=== PATIENT | female | born 1970 | race African-American/Black ===

== ENCOUNTER 2017-12-21 13:47 | Observation (INO) ==
[2017-12-21] MEDS ORDERED: Iohexol 350 MG/ML 100 ML Vial (for Cath Lab) IVCONTRAST ONE (13:48)
--- NOTE | 2017-12-21 14:31 | ED ---
HPI General Chief complaint: Chest Pain Stated complaint: Chest Pain Time Seen by Provider: 12/21/17 14:01 History of Present Illness HPI narrative: 47 female history of hypertension here for evaluation of chest pain. Chest pain started this afternoon, mid chest, radiates to the left arm, pressure-like, dull, occurred at rest, no palpitation or sweating, lasted for 3 minutes and went away on its own, patient received aspirin and nitroglycerin en route, she currently has no chest pain but is anxious about her condition. Does not take any medications for hypertension says that she was diagnosed only 3 months ago extensive family history of CAD. Related Data Home Medications Medication Instructions Recorded Confirmed No Known Home Medications 12/21/17 12/21/17 Allergies Allergy/AdvReac Type Severity Reaction Status Date / Time No Known Allergies Allergy Verified 12/21/17 14:21 Review of Systems ROS: all other systems reviewed are negative [facility] Medical History Medical History Chest pain (Acute) Hypertension (Acute) Family History Family History Other Family history of acute myocardial infarction Social History Social History Substance History: No History of Abuse Second Hand Smoke Exposure: No Smoking Status: Never smoker How Often Do You Have a Drink Containing Alcohol: Never Recent Travel in [facility] within the Last 8 Weeks: No Recent Out of Country Travel within the Last 8 Weeks: No Immunization History Tetanus Immunization: <5 Years Exam Narrative Exam Narrative: GENERAL: Alert oriented x3 no acute distress. SKIN: Focused skin assessment warm/dry. HEAD: Atraumatic. Normocephalic. EYES: Pupils equal and round. No scleral icterus. No injection or drainage. ENT: No nasal bleeding or discharge. Mucous membranes pink and moist. NECK: Trachea midline. No JVD. CARDIOVASCULAR: Regular rate and rhythm. No murmur appreciated. RESPIRATORY: No accessory muscle use. Clear to auscultation. Breath sounds equal bilaterally. GASTROINTESTINAL: Abdomen soft, non-tender, nondistended. Hepatic and splenic margins not palpable. MUSCULOSKELETAL: No obvious deformities. No clubbing. No cyanosis. No edema. NEUROLOGICAL: Awake and alert. No obvious cranial nerve deficits. Motor grossly within normal limits. Normal speech. PSYCHIATRIC: Appropriate mood and affect; insight and judgment normal. Course Initial Documented Vital Signs Temperature 98.5 F 12/21/17 13:59 Pulse Rate 79 12/21/17 13:59 Respiratory Rate 17 12/21/17 13:59 Blood Pressure 189/94 H 12/21/17 13:59 Pulse Oximetry 100 12/21/17 13:59 Last Documented Vital Signs Temperature 97.7 F 12/22/17 08:00 Pulse Rate 75 12/22/17 08:00 Respiratory Rate 16 12/22/17 04:30 Blood Pressure 127/71 12/22/17 08:00 Pulse Oximetry 99 12/22/17 04:30 Medical Decision Making MDM Narrative Medical decision making narrative: 47 female history of hypertension, non-smoker , here for chest pain, chest pain is typical on presentation and concern for CAD. EKG in route by EVAC showed ST segment elevation on V1, repeat EKG here shows ST segment elevation on V1 with no reciprocal changes, she also has multiple T wave inversions, she is currently pain-free, I sent a picture of the EKG to Dr. ortega cardiology javascript front end developer who recommended emergency cath. Patient will be evaluated per cardiology here in the ER. Pending labs. Update: Dr. Ortega assessed the patient at the ER and cath team will sisal picker patient for cardiac cath. Medical Screen Exam Complete: Yes Emergency Medical Condition: Yes Lab Data Result diagrams: 12/22/17 05:37 12/22/17 05:37 Lab Results 12/21/17 12/21/17 12/21/17 Range/Units 14:10 14:10 14:10 WBC 5.6 (4.0-11.0) th/mm3 RBC 4.44 (4.00-5.30) mil/mm3 Hgb 14.0 (11.6-15.3) gm/dL Hct 38.4 (35.0-46.0) % MCV 86.5 (80.0-100.0) fL MCH 31.5 (27.0-34.0) pg MCHC 36.4 H (32.0-36.0) % RDW 12.5 (11.6-17.2) % Plt Count 288 (150-450) th/mm3 MPV 8.9 (7.0-11.0) fL Prelim Diff (Auto) Slide review pending Neut % (Auto) 54.9 (16.0-70.0) % Lymph % (Auto) 36.9 (9.0-44.0) % [place] % (Auto) 5.3 (0.0-8.0) % Eos % (Auto) 2.2 (0.0-4.0) % Baso % (Auto) 0.7 (0.0-2.0) % Neut # (Auto) 3.0 (1.8-7.7) th/mm3 Lymph # (Auto) 2.1 (1.0-4.8) th/mm3 [place] # (Auto) 0.3 (0.0-0.9) th/mm3 Eos # (Auto) 0.1 (0.0-0.4) th/mm3 Baso # (Auto) 0.0 (0.0-0.2) th/mm3 WBC Differential . Diff Scan Auto diff confirmed Differential Comment . PT 10.1 (9.8-11.6) sec INR 1.0 Ratio APTT 25.0 (24.3-30.1) sec D-Dimer Quant (PE/DVT) 0.27 (0.00-0.50) mg/L FEU Sodium 142 (136-145) meq/L Potassium 3.7 (3.5-5.1) meq/L Chloride 109 H (98-107) meq/L Carbon Dioxide 28.5 (21.0-32.0) meq/L Anion Gap 5 (5-15) meq/L BUN 15 (7-18) mg/dL Creatinine 1.03 H (0.50-1.00) mg/dL Estimated GFR 69 L (>89) mL/min Random Glucose 109 H (74-106) mg/dL Hemoglobin A1c (4.3-6.0) % Calcium 8.8 (8.5-10.1) mg/dL Magnesium 2.2 (1.5-2.5) mg/dL Total Bilirubin 0.7 (0.2-1.0) mg/dL AST 22 (15-37) U/L ALT 25 (10-53) U/L Alkaline Phosphatase 85 (45-117) U/L Total Creatine Kinase 243 H (26-192) U/L CK-MB (CK-2) 1.6 (0.5-3.6) ng/mL CK-MB (CK-2) % 0.7 (0.0-4.0) % Troponin I Less than 0.02 L (0.02-0.05) ng/mL B-Natriuretic Peptide (0-100) pg/mL Total Protein 7.8 (6.4-8.2) g/dL Albumin 3.8 (3.4-5.0) g/dL Triglycerides (42-150) mg/dL Cholesterol (120-200) mg/dL LDL Cholesterol, Calc (0-99) mg/dL HDL Cholesterol (40.0-60.0) mg/dL Cholesterol/HDL Ratio Ratio Lipase 95 (73-393) U/L TSH (0.358-3.740) uIU/mL 12/21/17 12/21/17 12/21/17 Range/Units 14:10 14:10 14:10 WBC (4.0-11.0) th/mm3 RBC (4.00-5.30) mil/mm3 Hgb (11.6-15.3) gm/dL Hct (35.0-46.0) % MCV (80.0-100.0) fL MCH (27.0-34.0) pg MCHC (32.0-36.0) % RDW (11.6-17.2) % Plt Count (150-450) th/mm3 MPV (7.0-11.0) fL Prelim Diff (Auto) Neut % (Auto) (16.0-70.0) % Lymph % (Auto) (9.0-44.0) % [place] % (Auto) (0.0-8.0) % Eos % (Auto) (0.0-4.0) % Baso % (Auto) (0.0-2.0) % Neut # (Auto) (1.8-7.7) th/mm3 Lymph # (Auto) (1.0-4.8) th/mm3 [place] # (Auto) (0.0-0.9) th/mm3 Eos # (Auto) (0.0-0.4) th/mm3 Baso # (Auto) (0.0-0.2) th/mm3 WBC Differential Diff Scan Differential Comment PT (9.8-11.6) sec INR Ratio APTT (24.3-30.1) sec D-Dimer Quant (PE/DVT) (0.00-0.50) mg/L FEU Sodium (136-145) meq/L Potassium (3.5-5.1) meq/L Chloride (98-107) meq/L Carbon Dioxide (21.0-32.0) meq/L Anion Gap (5-15) meq/L BUN (7-18) mg/dL Creatinine (0.50-1.00) mg/dL Estimated GFR (>89) mL/min Random Glucose (74-106) mg/dL Hemoglobin A1c 6.0 (4.3-6.0) % Calcium (8.5-10.1) mg/dL Magnesium (1.5-2.5) mg/dL Total Bilirubin (0.2-1.0) mg/dL AST (15-37) U/L ALT (10-53) U/L Alkaline Phosphatase (45-117) U/L Total Creatine Kinase (26-192) U/L CK-MB (CK-2) (0.5-3.6) ng/mL CK-MB (CK-2) % (0.0-4.0) % Troponin I (0.02-0.05) ng/mL B-Natriuretic Peptide 14 (0-100) pg/mL Total Protein (6.4-8.2) g/dL Albumin (3.4-5.0) g/dL Triglycerides 179 H (42-150) mg/dL Cholesterol 168 (120-200) mg/dL LDL Cholesterol, Calc 83 (0-99) mg/dL HDL Cholesterol 49.2 (40.0-60.0) mg/dL Cholesterol/HDL Ratio 3.41 Ratio Lipase (73-393) U/L TSH 1.610 (0.358-3.740) uIU/mL 12/22/17 12/22/17 Range/Units 05:37 05:37 WBC 6.9 (4.0-11.0) th/mm3 RBC 4.30 (4.00-5.30) mil/mm3 Hgb 13.0 (11.6-15.3) gm/dL Hct 37.4 (35.0-46.0) % MCV 87.1 (80.0-100.0) fL MCH 30.2 (27.0-34.0) pg MCHC 34.7 (32.0-36.0) % RDW 12.6 (11.6-17.2) % Plt Count 258 (150-450) th/mm3 MPV 8.7 (7.0-11.0) fL Prelim Diff (Auto) Neut % (Auto) 75.2 H (16.0-70.0) % Lymph % (Auto) 19.1 (9.0-44.0) % [place] % (Auto) 4.0 (0.0-8.0) % Eos % (Auto) 1.4 (0.0-4.0) % Baso % (Auto) 0.3 (0.0-2.0) % Neut # (Auto) 5.2 (1.8-7.7) th/mm3 Lymph # (Auto) 1.3 (1.0-4.8) th/mm3 [place] # (Auto) 0.3 (0.0-0.9) th/mm3 Eos # (Auto) 0.1 (0.0-0.4) th/mm3 Baso # (Auto) 0.0 (0.0-0.2) th/mm3 WBC Differential . Diff Scan Differential Comment Auto diff final PT (9.8-11.6) sec INR Ratio APTT (24.3-30.1) sec D-Dimer Quant (PE/DVT) (0.00-0.50) mg/L FEU Sodium 142 (136-145) meq/L Potassium 3.6 (3.5-5.1) meq/L Chloride 108 H (98-107) meq/L Carbon Dioxide 28.1 (21.0-32.0) meq/L Anion Gap 6 (5-15) meq/L BUN 15 (7-18) mg/dL Creatinine 1.03 H (0.50-1.00) mg/dL Estimated GFR 69 L (>89) mL/min Random Glucose 131 H (74-106) mg/dL Hemoglobin A1c (4.3-6.0) % Calcium 8.6 (8.5-10.1) mg/dL Magnesium (1.5-2.5) mg/dL Total Bilirubin 0.5 (0.2-1.0) mg/dL AST 11 L (15-37) U/L ALT 26 (10-53) U/L Alkaline Phosphatase 77 (45-117) U/L Total Creatine Kinase (26-192) U/L CK-MB (CK-2) (0.5-3.6) ng/mL CK-MB (CK-2) % (0.0-4.0) % Troponin I (0.02-0.05) ng/mL B-Natriuretic Peptide (0-100) pg/mL Total Protein 7.1 D (6.4-8.2) g/dL Albumin 3.3 L (3.4-5.0) g/dL Triglycerides (42-150) mg/dL Cholesterol (120-200) mg/dL LDL Cholesterol, Calc (0-99) mg/dL HDL Cholesterol (40.0-60.0) mg/dL Cholesterol/HDL Ratio Ratio Lipase (73-393) U/L TSH (0.358-3.740) uIU/mL Imaging Data Radiologist's impression: Chest X-Ray 12/21/17 14:24 CONCLUSION: Negative examination. Discharge Plan Discharge Disposition Patient Disposition: 30 Still Patient Discharge Condition Condition: Good Discharge Order Discharge Orders: Discharge Order (Routine); Ordered 12/22/17 Ordered By: Jered Carias Discharge Details Anticipated Discharge Date: 12/22/17 Discharge Comment: discharge after urine screen obtained. Physicians Team ED Provider: Dexter Mars Primary Care Provider: Primary Care Alma Encarnacion Attending Provider: Jered Carias Discharge Interventions Interventions: ED Discharge Assessment Last Done: 12/21/17 15:00 Vital Signs Last Done: 12/21/17 14:24 Status ED Status: Left Department Discharge Information Discharge Date/Time: 12/21/17 19:04
[2017-12-21 15:05] LABS: Baso % (Auto) 0.7 % (0.0-2.0); D-Dimer 0.27 mg/L FEU (0.00-0.50); Eos # (Auto) 0.1 th/mm3 (0.0-0.4); Eos % (Auto) 2.2 % (0.0-4.0); Hematocrit 38.4 % (35.0-46.0); Lymph # (Auto) 2.1 th/mm3 (1.0-4.8); Lymph % (Auto) 36.9 % (9.0-44.0); Mean Corpuscular Hemoglobin 31.5 pg (27.0-34.0); Mean Corpuscular Volume 86.5 fL (80.0-100.0); Mean Platelet Volume 8.9 fL (7.0-11.0); Mono # (Auto) 0.3 th/mm3 (0.0-0.9); Mono % (Auto) 5.3 % (0.0-8.0); Neut % (Auto) 54.9 % (16.0-70.0); Platelet Count 288 th/mm3 (150-450); Prothrombin Time 10.1 sec (9.8-11.6); Red Blood Count 4.44 mil/mm3 (4.00-5.30); Red Cell Distribution Width 12.5 % (11.6-17.2); White Blood Count 5.6 th/mm3 (4.0-11.0)
[2017-12-21 15:11] LABS: Mean Corpuscular HGB Conc 36.4 % (32.0-36.0)
[2017-12-21] MEDS ORDERED: Heparin/NS PF Inj 1,000 ML ONE (15:15)
[2017-12-21] MEDS ORDERED: fentaNYL Citrate Inj 100 MCG/2 ML Ampul ONE (15:15)
[2017-12-21 15:17] LABS: Alkaline Phosphatase 85 U/L (45-117); Creatine Kinase 243 U/L (26-192); Total Protein 7.8 g/dL (6.4-8.2)
[2017-12-21 15:22] LABS: Alanine Aminotransferase 25 U/L (10-53); Albumin 3.8 g/dL (3.4-5.0); Anion Gap 5 meq/L (5-15); Aspartate Aminotransferase 22 U/L (15-37); Blood Urea Nitrogen 15 mg/dL (7-18); Calcium 8.8 mg/dL (8.5-10.1); Carbon Dioxide 28.5 meq/L (21.0-32.0); Chloride 109 meq/L (98-107); Glomerular Filtration Rate 69 mL/min (>89); Glucose,Random 109 mg/dL (74-106); Lipase 95 U/L (73-393); Magnesium 2.2 mg/dL (1.5-2.5); Potassium 3.7 meq/L (3.5-5.1); Sodium 142 meq/L (136-145)
--- NOTE | 2017-12-21 15:26 | XR ---
EXAM DATE: 12/21/2017 2:24 PM EDT AGE/SEX: 47 years / Female INDICATIONS: Angina. CLINICAL DATA: This is the patient's initial encounter. Patient reports that signs and symptoms have been present for 1 day and indicates a pain score of 0/10. MEDICAL/SURGICAL HISTORY: None. None. COMPARISON: No prior exams available for comparison. FINDINGS: A single AP view of the chest demonstrates the lungs to be symmetrically aerated without evidence of mass, infiltrate or effusion. The cardiomediastinal contours are unremarkable. Osseous structures a re intact. CONCLUSION: Negative examination. Electronically signed by: Juan Ramon Hopper MD 12/21/2017 3:25 PM EDT
[2017-12-21 15:29] LABS: CKMB Percent 0.7 % (0.0-4.0); Creatine Kinase MB 1.6 ng/mL (0.5-3.6)
--- NOTE | 2017-12-21 15:58 | CATHPROC ---
[employer] HIS Report Study Information Study Number Admission Scheduled Start Study Start [id number] Dec 21 2017 1:47PM 12/21/2017 Dec 21 2017 3:03PM [facility] Cardiac Catheterization Admit Source Facility Department Emergency department [facility] - Radiologic Technology Program Director Physician and Clinical Staff Initial Maurice Rodríguez Cdl Team Truck Driver Chcuky Jensen,TAB Recorder Antonette Faria,RT(R) Scrub Heidy Lopez RCIS TECH2 Procedures Performed Procedure Location (Site) Vessel Name Angiogram LV LV Ventricle Coronary Angiograms LCA Left Coronary Coronary Angiograms RCA Right Coronary L Heart Cath Equipment Time Predictive Maintenance Specialist Description Size Mfg Part Number Used/Scraped TRANSDUCER, TRUWAVE [id number] 15:16 [employer] LANDAVERDE * Used W/STOCKCOCK *[id number] 15:50 Rent Here VASCADE, FR5 CLOSURE SYSTEM FR 5 Used *[id number] *[id number] *[id number] 15:16 [employer] BLANKET,WARM AIR CCL * Used *[id number] 15:16 [employer] PACK, CCL CUSTOM * Used *[id number] 15:16 [employer] PACER PEN, SKIN DUAL W/ RULER * Used *[id number] PIG ANG 145 DXTERITY [id number] 15:37 [employer] TechnologiesTRONIC FR 5 Used CATHETER *[id number] 15:16 [employer] MEDICAL WIRE, 3MMJ .035 180CM 180CM Used *[id number] PROBE COVER, STERILE [id number] 15:16 Ren[employer]dai * Used ULTRASOUND W/ GEL *[id number] 15:16 NAMIC MANIFOLD, 4 PORT * Used *[id number] 15:39 NAMIC TUBING, HIGH PRESSURE 20" 20" Used *[id number] 15:16 NAMIC TUBING, HIGH PRESSURE 48" 48" Used *[id number] 15:16 [employer] OMNIPAQUE, 350 MG, 150ML 150ML [id number] Used 15:37 [employer] OMNIPAQUE, 350 MG, 50ML 50ML [id number] Used [id number] 15:16 TERUMO MEDICAL SHEATH, FR5 TERUMO (10CM) FR 5 Used *[id number] Equipment Model, Serial, Lot Number and Expiration Data Description Model Number Serial Number Lot Number Expiration Date PIG ANG 145 DXTERITY CATHETER [id number] 06-28-2019 History: Allergies Allergy Reaction No Known Allergies History: Risk Factors Family History of Hypertension Dyslipidemia Previous GA Previous Heart Failure Premature CAD Yes No No No No Prior Valve Prior PCI Prior CABG Surgery No No No Cerebrovascular Peripheral Artery Chronic Lung On Dialysis Diabetes Disease Disease Disease No No No No No History: Symptoms/Diagnosis Selection Items Chest pain History: Stress Tests Stress or Imaging Studies Performed No History: Other Current Smoker No Labs Hgb (g/dl) Hct (%) WBC (l/cumm) Platelets (thousands) 11.60-17.00 35.00-51.00 4.00-11.00 150.00-450.00 14.0 38.4 5.6 288 Glucose (mg/dl) BUN (mg/dl) Creatinine (mg/dl) BUN:Creatinine (1:x) 74.00-106.00 7.00-18.00 0.50-1.30 10.00-20.00 109 15 1.0 15 Na (meq/l) K (meq/l) 136.00-145.00 3.50-5.10 142 3.7 INR (PTT:PT) 0.90-1.10 1 Troponin I (ng/ml) CPK (u/l) CPK-MB (ng/ML) 0.02-0.05 26.00-308.00 0.50-3.60 0.02 243 1.6 Medication Medication Total Dose (Bolus/Oral) Medication Total Dosage/Unit 1% XYLOCAINE 20 mL FENTANYL 75 mcg VERSED 3 mg Medications (Bolus/Oral) Medication Time Given Dosage/Unit Administered By Reason VERSED 12/21/2017 3:18:09 PM 1 mg Chucky Jensen 1 mg VERSED given in lab by Chucky Jensen RN in Left Antecubital via Peripheral IV. Ordered by Maurice Temple. FENTANYL 12/21/2017 3:18:17 PM 25 mcg Chucky Jensen 25 mcg FENTANYL given in lab by Chucky Jensen RN in Left Antecubital via Peripheral IV. Ordered by Maurice Ortega. VERSED 12/21/2017 3:26:32 PM 1 mg Chucky Jensen 1 mg VERSED given in lab by Chucky Jensen RN in Left Antecubital via Peripheral IV. Ordered by Maurice Temple. FENTANYL 12/21/2017 3:26:35 PM 25 mcg Chucky Jensen 25 mcg FENTANYL given in lab by Chucky Jensen RN in Left Antecubital via Peripheral IV. Ordered by Maurice Ortega. VERSED 12/21/2017 3:31:51 PM 1 mg Chucky Jensen 1 mg VERSED given in lab by Chucky Jensen RN in Left Antecubital via Peripheral IV. Ordered by Maurice Temple. FENTANYL 12/21/2017 3:31:54 PM 25 mcg Chucky Jensen 25 mcg FENTANYL given in lab by Chucky Jensen RN in Left Antecubital via Peripheral IV. Ordered by Maurice Ortega. 1% XYLOCAINE 12/21/2017 3:34:10 PM 20 mL Maurice Ortega 20 mL 1% XYLOCAINE given in lab by Maurice Ortega in Right Groin via Subcutaneous. Medication (Drip) Medication Time Given Dosage/Unit Concentration/Unit Diluent (ml) Solutio n IV Solutions 12/21/2017 3:03:56 PM 50 mL (IV) NaCl .9 IV Solutions given in lab by Chucky Jensen RN in Left Antecubital via Peripheral IV. Pump/Drip Flow using NaCl .9. Initial Case Assessment Cardiovascular Chest Pain 0 Edema Present Skin color Skin None Normal Warm Dry Circulatory - Right Pulses Dorsalis Pedis Femoral 2 2 Scale (0,1,2,3,4,d) Circulatory - Left Pulses Dorsalis Pedis Femoral 2 2 Scale (0,1,2,3,4,d) Neurological State Oriented to time-place- Alert Moves all extremities person Chronological Log Time Study Chronological Log 15:00:31 Patient arrived via Bed. 15:03:35 Patient Name, D.O.B, / Armband Verified By R.N. 15:03:35 Consent signed by the physician and the patient and verified by the Radiologic Technology Program Director staff. 15:03:36 Pre-op and post- op instructions given; patient acknowledges understanding of instructions. 15:03:41 Presedation assessment performed by Radiologic Technology Program Director RN. 15:03:44 Patient has been NPO for Less than 6Hrs. 15:03:45 Skin Breakdown- none per pt 15:03:46 Patient Warmer Placed on the Table. 15:03:48 Jammie Prominences Protected 15:03:48 A # 20 IV was noted in the Antecubital (left). Grade = 0 15:03:56 IV Solutions given in lab by Chucky Jensen RN in Left Antecubital via Peripheral IV. Pump /Drip Flow using NaCl .9. 15:03:58 History and physical on the chart or being dictated. Assessment: Initial Case, Chest Pain=0, Edema=None, Color=Normal, Skin = Warm, Dry Right Pulses: Gabe Ped=2, Femoral=2 15:03:59 Left Pulses: Gabe Ped=2, Femoral=2 Neurological: State=Alert, Ox3, FAYE 15:11:12 Reference ECG taken Vitals capture started with the following parameters, Patient=Adult, Interval=5 min, Initial Pr wxduwo=689 mmHg, 15:12:20 Deflation Rate=5 mmHg, Cuff placed on Right Arm 15:13:41 HR=67 bpm, DCGR=465/106 mmhg, SpO2=99.0 %, Resp=11 B/min 15:18:03 HR=77 bpm, AKSW=965/109 mmhg, DrC1=758.0 %, Resp=9 B/min 15:18:09 1 mg VERSED given in lab by Chucky Jensen RN in Left Antecubital via Peripheral IV. Order ed by Maurice Ortega. 15:18:17 25 mcg FENTANYL given in lab by Chucky Jensen RN in Left Antecubital via Peripheral IV. O rdered by Maurice Ortega. 15:20:43 Bilateral groins prepped with 2% chlorhexidine, and draped after a 3 minute waiting time. 15:23:41 HR=73 bpm, CKZY=401/100 mmhg, SpO2=97.0 %, Resp=10 B/min 15:25:33 Reference ECG taken 15:25:40 Pressure channel 1 zeroed. 15:26:32 1 mg VERSED given in lab by Chucky Jensen RN in Left Antecubital via Peripheral IV. Order ed by Maurice Ortega. 15:26:35 25 mcg FENTANYL given in lab by Chucky Jensen RN in Left Antecubital via Peripheral IV. O rdered by Maurice Ortega. 15:27:51 paged 15:28:05 HR=71 bpm, ZRWK=317/90 mmhg, SpO2=96 %, Resp=9 B/min 15:28:08 MD arrived. 15:31:51 1 mg VERSED given in lab by Chucky Jensen RN in Left Antecubital via Peripheral IV. Order ed by Maurice Ortega. 15:31:54 25 mcg FENTANYL given in lab by Chucky Jensen RN in Left Antecubital via Peripheral IV. O rdered by Maurice Ortega. 15:32:58 HR=81 bpm, SJVA=290/93 mmhg, SpO2=95.0 %, Resp=9 B/min Time Out. Correct patient, correct procedure, correct physician, labs, allergies, and equipment verified with ammunition assembly i laborer 15:33:48 team present. Fire risk assesment completed (see hard stop sheet for coding). Time Out Conc urred by and individual staff in procedure. 15:34:00 Case Start 15:34:10 20 mL 1% XYLOCAINE given in lab by Maurice Ortega in Right Groin via Subcutaneous. 15:36:18 Access site was Right Femoral Artery via ultrasound. 15:36:28 A SHEATH, FR5 TERUMO (10CM) FR 5 was advanced into the Fem Art (right) using the Percutaneo us technique. A PIG ANG 145 DXTERITY CATHETER FR 5 was advanced over a wire. OMNIPAQUE, 350 MG, 150ML 150ML w as used 15:37:01 for injections. 15:38:01 HR=83 bpm, UKUE=538/74 mmhg, SpO2=95.0 %, Resp=9 B/min Recorded Pressure: LV, HR=80, Condition=Condition 1 15:38:13 (Left Ventricle) LV 145/7/12 15:39:58 The LV was injected at 10 cc/sec for a total of 30. OMNIPAQUE, 350 MG, 50ML 50ML used. Recorded Pressure: LV, Ao, HR=83, Condition=Condition 1 15:41:23 (Left Ventricle) LV 153/8/17, (Aorta) Ao 156/80/112 15:41:58 Catheter was removed A JL 4.0 INFINITI CATHETER FR 5 was advanced over a wire. OMNIPAQUE, 350 MG, 150ML 150ML was us ed for 15:42:29 injections. Recorded Pressure: Ao, HR=82, Condition=Condition 1 15:42:56 (Aorta) Ao 160/88/119 15:43:00 HR=81 bpm, QJJH=770/84 mmhg, SpO2=97.0 %, Resp=12 B/min 15:43:12 The LCA was injected and visualized at various angles. OMNIPAQUE, 350 MG, 150ML 150ML used . 15:45:08 Catheter was removed A AR MOD INFINITI CATHETER FR 5 was advanced over a wire. OMNIPAQUE, 350 MG, 150ML 150ML was us ed for 15:45:14 injections. 15:46:18 The RCA was injected and visualized at various angles. OMNIPAQUE, 350 MG, 150ML 150ML used . 15:47:39 Catheter was removed 15:47:43 Case End (Physician broke scrub) 15:47:55 HR=90 bpm, TNIN=152/87 mmhg, SpO2=98.0 %, Resp=11 B/min 15:49:30 An injection in the Fem Art (right) was made through the SHEATH, FR5 TERUMO (10CM) FR 5. 15:52:58 HR=84 bpm, HQSI=049/88 mmhg, SpO2=98.0 %, Resp=11 B/min 15:55:29 VASCADE, FR5 CLOSURE SYSTEM FR 5 placement in the Fem Art (right) 15:55:35 Sterile dressing applied to site 15:55:37 No case complications noted. 15:55:38 Cine recording checked. 15:55:41 Holding Area notified. 15:55:47 Bedside Report will be given. 15:55:49 Implantable Device card placed in patient's chart. 15:55:52 A Left Heart Cath was performed. 15:58:03 HR=80 bpm, UTGZ=710/77 mmhg, MrF9=494.0 %, Resp=15 B/min 15:58:26 Vitals capture stopped. 16:00:56 Patient moved to stretcher End Study - Contrast Media Used In Study Contrast Total Opened (mL) Total Used (mL) Total Wasted (mL) Omnipaque 200 75 125 End Study - Maximum Contrast Load Max Contrast Load (mL) 299.1 End Study - Radiation Exposure Fluoro Time (minutes) 1.7 End Study - Patient Disposition Complications Transferred To Interventional Outcome No Telemetry Bed No attempt made
--- NOTE | 2017-12-21 16:28 | MA ---
cc: Maurice Ortega MD DATE: 12/21/2017 PREOPERATIVE DIAGNOSIS: Unstable angina, class IV. PROCEDURE PERFORMED: 1. Retrograde left heart catheterization with left ventriculography and selective coronary angiography. 2. Moderate sedation. ACCESS SITE: Right femoral artery. EQUIPMENT USED FOR THE VENTRICULOGRAPHY: 5 Fr pigtail catheter, JL4 and AR modified coronary catheters. MEDICATIONS: Versed IV, fentanyl IV. CONTRAST: Omnipaque 75 mL. COMPLICATIONS: None. ESTIMATED BLOOD LOSS: Less than 10 mL. HEMOSTASIS: Vascade closure. HEMODYNAMICS: Heart rate 85 beats per minute, end-diastolic pressure of 8 mmHg. Left ventricle 155/8, aorta 155/88/119. LEFT VENTRICULOGRAPHY: Left ventricular ejection fraction 60%. Wall motion normal. No mitral regurgitation. CORONARY ANGIOGRAPHY: Left main coronary patent. Left anterior descending artery had mild 20% stenosis in the mid portion. D1 patent. Circumflex artery is patent. OM1 is a large vessel, which is patent. Ramus intermedius is patent. Right coronary is a dominant vessel, which is patent. PDA patent. PLV patent. DIAGNOSES: 1. Very mild nonobstructive coronary artery disease. 2. Preserved left ventricular systolic function. DISPOSITION: Ms. Alford can be reassured about her cardiac status. She has no evidence of significant obstructive coronary artery disease, and preserved left ventricular systolic function. I recommend to continue aggressive modification of her cardiac risk factors. Her symptoms are likely of noncardiac origin. Maurice Ortega MD OQ/rh , 03:55 PM , 04:03 PM MTDD
--- NOTE | 2017-12-21 17:17 | P.HPIM ---
History of Present Illness Service: [facility] Primary Care Physician: No Primary Care Physician Chief Complaint: Chest pain History of Present Illness: This is a 47 y/o AAF with PMHx of HTN (self-diagnosed at [facility] 3mths ago) admitted from the ED to the manager laboratory due to Chest pain. Patient is s/p cath which was WNL, we have been consulted for medical management and to monitor her blood pressures. Patient reports that her CP has resolved and that her sx are likely due to increased stress. Patient does not have a PCP and does not take home medications. Prior to cath CP was located in the mid chest, felt like pressure, and radiated to her left arm, occurred at rest. No other concerns. Denies previous [place], CVA, DVT, and DM. - Diagnosis (1) Chest pain (2) Hypertension Inpatient Certification: I certify that the inpatient services were ordered in accordance with Medicare regulations governing the order. 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 - Medical / Surgical Hx Neg / Unobtainable Surgical History: No Previous Surgery - Medical History Medical History: Medical History (Last Updated 12/21/17 @ 17:59 by Eveline Cheng MD) Chest pain Hypertension - Family History Family History: Family History (Last Updated 12/21/17 @ 18:04 by Eveline Cheng MD) Other Family history of acute myocardial infarction - Tobacco History Smoking Status: Never smoker - Alcohol History How Often Do You Have a Drink Containing Alcohol: Monthly or less - Substance Use History Substance History: No History of Abuse - Travel History Recent Travel in the [place] Within the Last 8 Weeks: No Recent Travel Out of the Country Within the Last 8 Weeks: No - Immunization History Tetanus Immunization: <5 Years Medications and Allergies Allergies Allergy/AdvReac Type Severity Reaction Status Date / Time No Known Allergies Allergy Verified 12/21/17 14:21 Home Medications Medication Instructions Recorded Confirmed Type No Known Home Medications 12/21/17 12/21/17 History Exam Vital signs: Vital Signs 12/21/17 13:59 Temperature 98.5 F Pulse Rate 79 Respiratory Rate 17 Blood Pressure 189/94 H Pulse Oximetry 100 Intake & Output 12/20/17 12/21/17 12/21/17 18:59 06:59 18:59 Weight 59.874 kg Narrative: GENERAL: Well-nourished -[place]alian female, in no acute distress, lying comfortably in bed SKIN: Warm and dry. HEENT: Normocephalic. No scleral icterus. No injection or drainage. PERRLA, MOM. NECK: Supple, trachea midline. No JVD or lymphadenopathy. CARDIOVASCULAR: Regular rate and rhythm without murmurs, gallops, or rubs. RESPIRATORY: Breath sounds equal bilaterally. No accessory muscle use. GASTROINTESTINAL: Abdomen soft, non-tender, nondistended. MUSCULOSKELETAL: No cyanosis, or edema. BACK: Nontender without obvious deformity. No CVA tenderness. NEURO/PSYCH: AAO x3, no focal deficits, pleasant and cooperative. Results - Labs CBC & Chem 7: 12/21/17 14:10 12/21/17 14:10 Labs: Short CBC 12/21/17 Range/Units 14:10 WBC 5.6 (4.0-11.0) th/mm3 Hgb 14.0 (11.6-15.3) gm/dL Hct 38.4 (35.0-46.0) % Plt Count 288 (150-450) th/mm3 BMP 12/21/17 14:10 Sodium 142 Potassium 3.7 Chloride 109 H Carbon Dioxide 28.5 BUN 15 Creatinine 1.03 H Calcium 8.8 Cardiac Enzymes 12/21/17 Range/Units 14:10 Total Creatine Kinase 243 H (26-192) U/L CK-MB (CK-2) 1.6 (0.5-3.6) ng/mL Troponin I Less than 0.02 L (0.02-0.05) ng/mL Liver Function 12/21/17 Range/Units 14:10 Total Bilirubin 0.7 (0.2-1.0) mg/dL AST 22 (15-37) U/L ALT 25 (10-53) U/L Alkaline Phosphatase 85 (45-117) U/L Albumin 3.8 (3.4-5.0) g/dL - Imaging Impressions Chest X-Ray 12/21/17 14:24 CONCLUSION: Negative examination. Caprini VTE Risk Assessment Caprini VTE Risk Assessment: No/Low Risk (score <= 1) Caprini Risk Assessment Model: Point Value = 1 Point Value = 2 Point Value = 3 Point Value = 5 Age 41-60 Minor surgery BMI > 25 kg/m2 Swollen legs Varicose veins or History of unexplained or recurrent spontaneous Oral contraceptives or hormone replacement Sepsis (< 1 month) Serious lung disease, including pneumonia (< 1 month) Abnormal pulmonary function Acute myocardial infarction Congestive heart failure (< 1 month) History of inflammatory bowel disease Medical patient at bed rest Age 61-74 Arthroscopic surgery Major open surgery (> 45 min) Laparoscopic surgery (> 45 min) Malignancy Confined to bed (> 72 hours) Immobilizing plaster cast Central venous access Age >= 75 History of VTE Family history of VTE Factor V Leiden Prothrombin [id number] Lupus anticoagulant Anticardiolipin antibodies Elevated serum homocysteine Heparin-induced thrombocytopenia Other congenital or acquired thrombophilia Stroke (< 1 month) Elective arthroplasty Hip, pelvis, or leg fracture Acute spinal cord injury (< 1 month) Prophylaxis Regimen: Total Risk Factor Score Risk Level Prophylaxis Regimen 0-1 Low Early ambulation 2 Moderate Order ONE of the following: *Sequential Compression Device (SCD) *Heparin 5000 units SQ BID 3-4 Higher Order ONE of the following medications: *Heparin 5000 units SQ TID *Enoxaparin/Lovenox 40 mg SQ daily (WT < 150 kg, CrCl > 30 mL/min) *Enoxaparin/Lovenox 30 mg SQ daily (WT < 150 kg, CrCl > 10-29 mL/min) *Enoxaparin/Lovenox 30 mg SQ BID (WT < 150 kg, CrCl > 30 mL/min) AND/OR *Sequential Compression Device (SCD) 5 or more Highest Order ONE of the following medications: *Heparin 5000 units SQ TID (Preferred with Epidurals) *Enoxaparin/Lovenox 40 mg SQ daily (WT < 150 kg, CrCl > 30 mL/min) *Enoxaparin/Lovenox 30 mg SQ daily (WT < 150 kg, CrCl > 10-29 mL/min) *Enoxaparin/Lovenox 30 mg SQ BID (WT < 150 kg, CrCl > 30 mL/min) AND *Sequential Compression Device (SCD) Assessment and Plan - Assessment (1) Chest pain Code(s): R07.9 - Chest pain, unspecified Status: Acute (2) Hypertension Code(s): I10 - Essential (primary) hypertension Status: Acute - Plan This is a 47 y/o AAF with PMHx of HTN (self-diagnosed at [facility] 3mths ago) admitted from the ED to the manager laboratory due to Chest pain. Patient is s/p cath which was WNL, we have been consulted for medical management and to monitor her blood pressures, HD#1 1. Chest Pain, resolved Likely related to uncontrolled HTN/Stress/Anxiety Cath Neg today Patient reassured about cath findings CORONARY ANGIOGRAPHY 12/21: Left main coronary patent. Left anterior descending artery had mild 20% stenosis in the mid portion. D1 patent. Circumflex artery is patent. OM1 is a large vessel, which is patent. Ramus intermedius is patent. 2. Uncontrolled Hypertension Patient reports 3 months ago at [facility] she had an elevated blood pressure Patient does not see a PCP or have a previous diagnosis of hypertension Will start on Amlodipine 10mg PO QHS Will add clonidine PRN Continue to monitor blood pressures 3. Health Maintenance Checking hemoglobin A1c, lipid panel, TSH 4. DVT PPX: SCD's 5. Dispo: D/C in AM if stable Code Status: full Discussed Condition With: patient, RN, family
[2017-12-21] MEDS ORDERED: amLODIPine 10 MG Tablet PO ONE (17:32)
[2017-12-21] MEDS ORDERED: Bisacodyl 10 MG Supp RECTAL PRN (18:12)
[2017-12-21] MEDS ORDERED: Acetaminophen 325 MG Tablet PO PRN (18:12)
[2017-12-21 20:46] LABS: Chol/HDL Ratio 3.41 Ratio; HDL Cholesterol 49.2 mg/dL (40.0-60.0); Thyroid Stimulating Hormone 1.61 uIU/mL (0.358-3.740)
[2017-12-21] MEDS: Senna/Docusate Sodium 8.6/50 MG Tablet PO SCH (22:22)
[2017-12-22 01:11] VITALS: RESP 16; O2SAT 99
[2017-12-22 06:33] LABS: Baso % (Auto) 0.3 % (0.0-2.0); Eos # (Auto) 0.1 th/mm3 (0.0-0.4); Eos % (Auto) 1.4 % (0.0-4.0); Hematocrit 37.4 % (35.0-46.0); Lymph # (Auto) 1.3 th/mm3 (1.0-4.8); Lymph % (Auto) 19.1 % (9.0-44.0); Mean Corpuscular HGB Conc 34.7 % (32.0-36.0); Mean Corpuscular Hemoglobin 30.2 pg (27.0-34.0); Mean Corpuscular Volume 87.1 fL (80.0-100.0); Mean Platelet Volume 8.7 fL (7.0-11.0); Mono # (Auto) 0.3 th/mm3 (0.0-0.9); Neut # (Auto) 5.2 th/mm3 (1.8-7.7); Neut % (Auto) 75.2 % (16.0-70.0); Platelet Count 258 th/mm3 (150-450); Red Cell Distribution Width 12.6 % (11.6-17.2); White Blood Count 6.9 th/mm3 (4.0-11.0)
[2017-12-22 07:01] LABS: Alanine Aminotransferase 26 U/L (10-53); Albumin 3.3 g/dL (3.4-5.0); Anion Gap 6 meq/L (5-15); Aspartate Aminotransferase 11 U/L (15-37); Blood Urea Nitrogen 15 mg/dL (7-18); Calcium 8.6 mg/dL (8.5-10.1); Carbon Dioxide 28.1 meq/L (21.0-32.0); Chloride 108 meq/L (98-107); Glomerular Filtration Rate 69 mL/min (>89); Glucose,Random 131 mg/dL (74-106); Potassium 3.6 meq/L (3.5-5.1); Sodium 142 meq/L (136-145)
[2017-12-22 07:04] LABS: Alkaline Phosphatase 77 U/L (45-117); Total Protein 7.1 g/dL (6.4-8.2)
[2017-12-22] MEDS ORDERED: amLODIPine 10 MG Tablet PO SCH (09:00)
--- NOTE | 2017-12-22 10:06 | P.PNIM ---
Subjective Interval history: Patient says she is feeling well. Denies any chest pain or shortness of breath. Feels comfortable going home. Physical Exam Vital signs: Vital Signs 12/21/17 13:59 12/21/17 16:06 12/21/17 20:00 Temperature 98.5 F 98.5 F Pulse Rate 79 82 Respiratory Rate 17 16 Blood Pressure 189/94 H 176/90 H Pulse Oximetry 100 100 99 12/21/17 20:15 12/21/17 21:00 12/21/17 22:00 Temperature Pulse Rate 89 82 78 Respiratory Rate Blood Pressure Pulse Oximetry 12/21/17 23:00 12/22/17 00:00 12/22/17 01:00 Temperature Pulse Rate 77 78 76 Respiratory Rate 16 Blood Pressure 129/58 L Pulse Oximetry 99 12/22/17 02:00 12/22/17 03:00 12/22/17 04:00 Temperature Pulse Rate 70 77 76 Respiratory Rate Blood Pressure Pulse Oximetry 12/22/17 04:30 12/22/17 05:00 12/22/17 06:00 Temperature Pulse Rate 76 76 74 Respiratory Rate 16 Blood Pressure 134/53 L Pulse Oximetry 99 12/22/17 07:00 12/22/17 08:00 Temperature 97.7 F Pulse Rate 75 75 Respiratory Rate Blood Pressure 127/71 Pulse Oximetry Intake & Output 12/21/17 12/22/17 12/22/17 18:59 06:59 18:59 Intake Total 480 / 480 Balance 480 / 480 Weight 59.874 kg 72.2 kg Intake: Oral 480 / 480 Other: # Voids 1 Narrative: GENERAL: Sitting up in bed. Appears comfortable. Alert and oriented x3. SKIN: Warm and dry. HEAD: Normocephalic. EYES: No scleral icterus. No injection or drainage. NECK: Supple, trachea midline. No JVD. CARDIOVASCULAR: Regular rate and rhythm without murmurs, gallops, or rubs. RESPIRATORY: Breath sounds equal bilaterally. No accessory muscle use. GASTROINTESTINAL: Abdomen soft, non-tender, nondistended. MUSCULOSKELETAL: No cyanosis, or edema. BACK: Nontender without obvious deformity. No CVA tenderness. Results - Labs CBC & Chem 7: 12/22/17 05:37 12/22/17 05:37 Laboratory Results - last 24 hr 12/21/17 12/21/1718 14:10 14:10 14:10 WBC 5.6 RBC 4.44 Hgb 14.0 Hct 38.4 MCV 86.5 MCH 31.5 MCHC 36.4 H RDW 12.5 Plt Count 288 MPV 8.9 Prelim Diff (Auto) Slide review pending Neut % (Auto) 54.9 Lymph % (Auto) 36.9 [place] % (Auto) 5.3 Eos % (Auto) 2.2 Baso % (Auto) 0.7 Neut # (Auto) 3.0 Lymph # (Auto) 2.1 [place] # (Auto) 0.3 Eos # (Auto) 0.1 Baso # (Auto) 0.0 WBC Differential . Diff Scan Auto diff confirmed Differential Comment . PT 10.1 INR 1.0 APTT 25.0 D-Dimer Quant (PE/DVT) 0.27 Sodium 142 Potassium 3.7 Chloride 109 H Carbon Dioxide 28.5 Anion Gap 5 BUN 15 Creatinine 1.03 H Estimated GFR 69 L Random Glucose 109 H Hemoglobin A1c Calcium 8.8 Magnesium 2.2 Total Bilirubin 0.7 AST 22 ALT 25 Alkaline Phosphatase 85 Total Creatine Kinase 243 H CK-MB (CK-2) 1.6 CK-MB (CK-2) % 0.7 Troponin I Less than 0.02 L B-Natriuretic Peptide Total Protein 7.8 Albumin 3.8 Triglycerides Cholesterol LDL Cholesterol, Calc HDL Cholesterol Cholesterol/HDL Ratio Lipase 95 TSH 12/21/17 12/21/17 12/21/17 14:10 14:10 14:10 WBC RBC Hgb Hct MCV MCH MCHC RDW Plt Count MPV Prelim Diff (Auto) Neut % (Auto) Lymph % (Auto) [place] % (Auto) Eos % (Auto) Baso % (Auto) Neut # (Auto) Lymph # (Auto) [place] # (Auto) Eos # (Auto) Baso # (Auto) WBC Differential Diff Scan Differential Comment PT INR APTT D-Dimer Quant (PE/DVT) Sodium Potassium Chloride Carbon Dioxide Anion Gap BUN Creatinine Estimated GFR Random Glucose Hemoglobin A1c 6.0 Calcium Magnesium Total Bilirubin AST ALT Alkaline Phosphatase Total Creatine Kinase CK-MB (CK-2) CK-MB (CK-2) % Troponin I B-Natriuretic Peptide 14 Total Protein Albumin Triglycerides 179 H Cholesterol 168 LDL Cholesterol, Calc 83 HDL Cholesterol 49.2 Cholesterol/HDL Ratio 3.41 Lipase TSH 1.610 12/22/17 12/22/17 05:37 05:37 WBC 6.9 RBC 4.30 Hgb 13.0 Hct 37.4 MCV 87.1 MCH 30.2 MCHC 34.7 RDW 12.6 Plt Count 258 MPV 8.7 Prelim Diff (Auto) Neut % (Auto) 75.2 H Lymph % (Auto) 19.1 [place] % (Auto) 4.0 Eos % (Auto) 1.4 Baso % (Auto) 0.3 Neut # (Auto) 5.2 Lymph # (Auto) 1.3 [place] # (Auto) 0.3 Eos # (Auto) 0.1 Baso # (Auto) 0.0 WBC Differential . Diff Scan Differential Comment Auto diff final PT INR APTT D-Dimer Quant (PE/DVT) Sodium 142 Potassium 3.6 Chloride 108 H Carbon Dioxide 28.1 Anion Gap 6 BUN 15 Creatinine 1.03 H Estimated GFR 69 L Random Glucose 131 H Hemoglobin A1c Calcium 8.6 Magnesium Total Bilirubin 0.5 AST 11 L ALT 26 Alkaline Phosphatase 77 Total Creatine Kinase CK-MB (CK-2) CK-MB (CK-2) % Troponin I B-Natriuretic Peptide Total Protein 7.1 D Albumin 3.3 L Triglycerides Cholesterol LDL Cholesterol, Calc HDL Cholesterol Cholesterol/HDL Ratio Lipase TSH - Imaging Impressions Chest X-Ray 12/21/17 14:24 CONCLUSION: Negative examination. Assessment and Plan - Assessment (1) Chest pain Code(s): R07.9 - Chest pain, unspecified Status: Acute (2) Hypertension Code(s): I10 - Essential (primary) hypertension Status: Acute - Plan his is a 47 y/o AAF with PMHx of HTN (self-diagnosed at [facility] 3mths ago) admitted from the ED to the [facility] lab[facility] due to Chest pain. Patient is s/p cath which was WNL , we have been consulted for medical management and to monitor her blood pressures, HD#1 //Chest Pain, resolved Likely related to uncontrolled HTN/Stress/Anxiety Cath Neg today Patient reassured about cath findings CORONARY ANGIOGRAPHY 12/21: Left main coronary patent. Left anterior descending artery had mild 20% stenosis in the mid portion. D1 patent. Circumflex artery is patent. OM1 is a large vessel, which is patent. Ramus intermedius is patent. = Patient will be started on low-dose aspirin. We will follow-up with cardiology and primary care as outpatient. Likely chest pain with demand related secondary to hypertension. Drug screen is pending. //Uncontrolled Hypertension Patient reports 3 months ago at [facility] she had an elevated blood pressure Patient does not see a PCP or have a previous diagnosis of hypertension Will start on Amlodipine 10mg PO QHS Will add clonidine PRN Continue to monitor blood pressures = Blood pressures improved on amlodipine. Patient will purchase over-the- counter blood pressure cuff and follow with primary care. //Health Maintenance //Noon diagnosis of prediabetes. Checking hemoglobin A1c, lipid panel, TSH = TSH within normal limits. = A1c in prediabetic range. Advise Dietary modification,and f/u with PCP. = Lipids with LDL 83, HDL 49. Follow with primary care //DVT PPX: SCD's //Dispo: D/C to follow-up with cardiology and primary care. Discussed Condition With: Patient, nurse, mother at bedside Discharge Planning: Discharge home in good condition. Heart healthy diet. Activity ad radha. Please see discharge medication reconciliation for medication list. Follow-up with cardiology and primary care.
[2017-12-22] MEDS: Senna/Docusate Sodium 8.6/50 MG Tablet PO SCH (10:44)
[2017-12-22 13:09] LABS: Amphetamine Screen,Urine Neg (Neg); Barbiturate Screen,Urine Neg (Neg); Cannabinoid Screen,Urine Neg (Neg); Cocaine Screen,Urine Neg (Neg)
[2017-12-22 13:12] LABS: Opiate Screen,Urine Neg (Neg)
[2017-12-22 15:12] VITALS: BP 122/69; TEMP 98
[2017-12-22 15:13] VITALS: PULSE 71
--- NOTE | 2017-12-22 20:40 | ECG ---
Date Performed: 12/21/2017 Time Performed: 14:12:11 PTAGE: 47 years EKG: Sinus rhythm POSSIBLE RIGHT VENTRICULAR CONDUCTION DELAY MODERATE T-WAVE ABNORMALITY ABNORMAL ECG PREVIOUS TRACING : 12/21/2017 13.59 Since the previous tracing, no significant change noted DOCTOR: Maurice Ortega Interpretating Date/Time 12/22/2017 20:39:04
--- NOTE | 2017-12-22 20:41 | ECG ---
Date Performed: 12/21/2017 Time Performed: 13:59:55 PTAGE: 47 years EKG: Sinus rhythm WITH OCCASIONAL VENTRICULAR PREMATURE COMPLEXES POSSIBLE RIGHT VENTRICULAR CONDUCTION DELAY MODERATE T-WAVE ABNORMALITY ABNORMAL ECG NO PREVIOUS TRACING DOCTOR: Maurice Ortega Interpretating Date/Time 12/22/2017 20:39:35
--- NOTE | 2018-01-02 18:08 | MB ---
cc: Maurice Ortega MD DATE: 01/02/2018 HISTORY OF PRESENT ILLNESS: This is a 47-year-old black female with a history of hypertension, who presented with substernal chest pressure radiating to the left arm, which occurred at rest. The patient has family history of heart disease. PAST MEDICAL HISTORY: Positive for hypertension. No history of diabetes mellitus, dyslipidemia, coronary artery disease, or CVA. MEDICATIONS: None. ALLERGIES: None. SOCIAL HISTORY: The patient does not smoke. She drinks alcohol infrequently. FAMILY HISTORY: Positive for heart disease including myocardial infarction. REVIEW OF SYSTEMS: Otherwise negative. PHYSICAL EXAMINATION: VITAL SIGNS: Blood pressure 189/94, pulse 79 and regular. HEENT: Negative 2+ upstrokes, no bruits. LUNGS: Clear. HEART: Regular. No murmur, gallop or rub. ABDOMEN: Soft. EXTREMITIES: Without edema. 2+ pulses. NEUROLOGIC: Grossly nonfocal. LABORATORY DATA: EKG was reviewed and showed normal sinus rhythm, PVCs, and diffuse T-wave changes. LABORATORY DATA: Hemoglobin 13.0. Potassium 3.7, creatinine 1.0. DIAGNOSES: 1. Unstable angina. 2. Hypertension. 3. Family history of coronary artery disease. DISPOSITION: Ms. Alford will undergo cardiac catheterization and coronary intervention if necessary. She understands the risks and benefits and wishes to proceed. I recommend aggressive modification of her cardiac risk factors. MD HUEY Garcia/lizett , 03:59 PM , 04:05 PM [email or web address]
== END 2017-12-22 13:58 | disposition home or self-care (01) ==
LOC: NEPC 13:47 → HDIC 16:54 → INTOOBSV 17:03 → HDIC 17:03 → HCIS 20:05
PROVIDERS: ADMIT Internal Medicine; ATTEND Internal Medicine